=== PATIENT | male | born 1990 | race African-American/Black ===

== ENCOUNTER 2018-07-12 02:22 | Emergency (ER) | payer OTHER ==
[2018-07-12 02:32] VITALS: BP 138/88
[2018-07-12] MEDS ORDERED: DIPH/PERTUSS(ACELL)/TETANUS VAC/PF 0.5 ML SYR (>=10YO) IM ONE (05:48)
--- NOTE | 2018-07-12 05:49 | ER Document Report ---
HPI - HPI Patient complains to provider of: Left foot injury Time Seen by Provider: 07/12/18 04:24 Pain Level: 1 Context: Patient is a 27-year-old male that comes to the emergency department for chief complaint of laceration to the bottom of his left foot. He states he was trying to push a car out of Wednesday night, he states that he was cut over his foot but not through a shoe, he states he is unsure what he stepped on. His tetanus is not up-to-date. He states he was bleeding a lot from the foot initially but it stopped on its own. He denies any other injuries. He denies any medical history or daily medications. - MUSCULOSKELETAL Musculoskeletal: REPORTS: Extremity pain - left foot Past Medical History - General Information source: Patient - Social History Smoking Status: Never Smoker Drug Abuse: None Lives with: Family Family History: Reviewed & Not Pertinent Patient has suicidal ideation: No Patient has homicidal ideation: No - Medical History Medical History: Negative Renal/ Medical History: Denies: Hx Peritoneal Dialysis Surgical Hx: Negative - Immunizations Immunizations up to date: No Hx Diphtheria, Pertussis, Tetanus Vaccination: Yes Vertical Provider Document - CONSTITUTIONAL General Appearance: WD/WN, No Apparent Distress - INFECTION CONTROL TRAVEL OUTSIDE OF THE [place] IN LAST 30 DAYS: No - HEENT HEENT: Atraumatic, Normocephalic - NECK Neck: Normal Inspection - RESPIRATORY Respiratory: Breath Sounds Normal, No Respiratory Distress - CARDIOVASCULAR Cardiovascular: Regular Rate, Regular Rhythm - GI/ABDOMEN Gastrointestinal: Abdomen Soft, Abdomen Non-Tender - BACK Back: Normal Inspection - MUSCULOSKELETAL/EXTREMETIES Musculoskeletal/Extremeties: MAEW, FROM, Tender - There is a flap through the dermis laceration over the bottom of the left foot with 2 areas of extremely superficial skin flaps in addition to this. Laceration is lateral. Whole area is about 3 cm in length. No current bleeding. No swelling. No foreign body. Normal foot, leg, lower extremity exam otherwise. - NEURO Level of Consciousness: Awake, Alert, Appropriate Motor/Sensory: No Motor Deficit, No Sensory Deficit Course - Re-evaluation Re-evalutation: Discussed with patient. The flap approximates very well. This was easily opened, heavily irrigated with an entire bottle of saline, the extremely superficial skin flap portions were debrided with scissors and pickups, the area was cleansed after irrigation with surgical cleanser, area was dressed with Xeroform, patient placed in postop shoe, declined crutches. Discussed wound care, follow-up, return precautions. Patient states understanding and agreement. - Vital Signs Vital signs: Temp Pulse Resp BP Pulse Ox 97.7 F 90 18 138/88 H 96 07/12/18 02:23 07/12/18 02:23 07/12/18 02:23 07/12/18 02:23 07/12/18 02:23 Discharge - Discharge Clinical Impression: Laceration of left foot Qualifiers: Encounter type: initial encounter Qualified Code(s): S91.312A - Laceration without foreign body, left foot, initial encounter Condition: Stable Disposition: HOME, SELF-CARE Additional Instructions: We have decided after irrigation and dressing to not close the foot wound because of the high risk of infection and because this should heal without closure. Keep the current Xeroform dressing on for at least 2 days. Afterwards apply topical antibiotic and clean dressing at least daily. Keep area clean. I recommend for the first 2 days that you elevate whenever possible. Take Tylenol or ibuprofen for pain. Return if you worsen in any way including developing severe pain, spreading redness, discolored drainage, fever, or any other concerning worsening symptoms. Forms: Return to School
== END 2018-07-12 06:15 | disposition home or self-care (01) ==
LOC: ER 02:22
DX: S91.312A Laceration without foreign body, left foot, initial encounter (principal); W26.9XXA Contact with unspecified sharp object(s), initial encounter
CPT/HCPCS: 90471; 90715; 99282